=== PATIENT | female | born 1965 | race Caucasian/White ===

== ENCOUNTER 2019-04-15 23:43 | Emergency (ER) | payer OTHER ==
[~2019-04-15] VITALS: Ht 154.9 cm; Wt 81.6 kg
[2019-04-15 23:50] VITALS: BP 152/90
--- NOTE | 2019-04-15 23:53 | NUR ---
TO LOBBY A/W BED AMBULATORY
--- NOTE | 2019-04-16 00:27 | NUR ---
PT AMBULATED TO ER BED 12
[2019-04-16 01:00] LABS: BASOPHILS # (AUTO) 0.1 K/uL (0.00-0.22); BASOPHILS % (AUTO) 0.7 % (0.0-2.0); EOSINOPHILS % (AUTO) 0.5 % (0.0-4.0); HEMATOCRIT 42.1 % (36-48); HEMOGLOBIN 14.3 g/dL (12.0-16.0); LYMPHOCYTES # (AUTO) 1.6 K/uL (2.5-16.5); LYMPHOCYTES % (AUTO) 19.1 % (20.5-51.1); MEAN CORPUSCULAR HEMOGLOBIN 30 pg (27-31); MEAN CORPUSCULAR HGB CONC 34 g/dL (33-37); MONOCYTES # (AUTO) 0.4 K/uL (0.8-1.0); MONOCYTES % (AUTO) 4.5 % (1.7-9.3); NEUTROPHILS # (AUTO) 6.4 K/uL (1.8-7.7); NEUTROPHILS % (AUTO) 75.2 % (42.2-75.2); PLATELET COUNT (AUTO) 311 K/uL (140-450); RED BLOOD CELL COUNT(AUTO) 4.84 MIL/uL (4.20-5.40); RED CELL DISTRIBUTION WIDTH 12.9 % (11.6-13.7); WHITE BLOOD COUNT (AUTO) 8.5 K/uL (4.8-10.8)
--- NOTE | 2019-04-16 01:00 | NUR ---
54 YO F BIB SELF C/O RLQ 3/10 SHARP PAIN STARTING TODAY WITH VOMITING SINCE 1 PM X 3. ALSO CO 4/10 ROA SINCE 1300, GENERALIZED BODY ACHES. DENIES FEVER/CHILLS, COUGH, DIARRHEA. ABD IS ROUND, SOFT/PLIABLE, NON TENDER. MEDICATED AT HOME WITH IBUPROFEN @ 1500 WITH LITTLE RELIEF. PMH-- DENIES
[2019-04-16] MEDS: NACL 0.9% 1,000 ML IV ONE (01:10)
[2019-04-16] MEDS: ONDANSETRON 4 MG/2 ML VIAL IVP ONE (01:11)
[2019-04-16] MEDS: KETOROLAC 30 MG/ML VIAL IVP ONE (01:11)
[2019-04-16 01:15] LABS: ALBUMIN 3.7 g/dL (3.4-5.0); ANION GAP 12.4 (8-16); CARBON DIOXIDE 29.1 mmol/L (21-32); CREATININE 0.6 mg/dL (0.6-1.3); POTASSIUM 3.5 mmol/L (3.5-5.1); TOTAL BILIRUBIN 0.4 mg/dL (0.0-1.0)
[2019-04-16 04:30] VITALS: BP 142/82
--- NOTE | 2019-04-16 04:32 | NUR ---
Patient discharged with v/s stable. Written and verbal after care instructions given and explained. Patient alert, oriented and verbalized understanding of instructions. Ambulatory with steady gait. All questions addressed prior to discharge. ID band removed. Patient advised to follow up with PMD. Rx of ZOFRAN, MOTRIN, TRAMADOL given. Patient educated on indication of medication including possible reaction and side effects. Opportunity to ask questions provided and answered.
== END 2019-04-16 04:30 | disposition home or self-care (01) ==
LOC: MED 23:43
DX: R10.11 Right upper quadrant pain (principal); R11.10 Vomiting, unspecified
CPT/HCPCS: 36415; 74176; 80053; 85025; 96361; 96374; 96375; 99284; J1885; J2405; J7030

== ENCOUNTER 2019-09-25 12:29 | Emergency (ER) | payer OTHER ==
[~2019-09-25] VITALS: Ht 157.5 cm; Wt 85.4 kg
[2019-09-25 12:35] VITALS: BP 146/81
--- NOTE | 2019-09-25 12:43 | NUR ---
AMBULATED TO BED 10
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
[2019-09-25] MEDS: IBUPROFEN 600 MG TAB PO ONE (13:11)
--- NOTE | 2019-09-25 13:11 | NUR ---
XRAY IS AT BEDSIDE.
--- NOTE | 2019-09-25 13:56 | NUR ---
PT TO ROOM 12
--- NOTE | 2019-09-25 14:02 | NUR ---
PA MAYEN RE-EVALUATING PT
[2019-09-25 14:25] VITALS: BP 146/81
--- NOTE | 2019-09-25 14:26 | NUR ---
Patient discharged with v/s stable. Written and verbal after care instructions given and explained. Patient alert, oriented and verbalized understanding of instructions. Ambulatory with steady gait. All questions addressed prior to discharge. ID band removed. Patient advised to follow up with PMD. Rx of MOTRIN 600MG given. Patient educated on indication of medication including possible reaction and side effects. Opportunity to ask questions provided and answered.
== END 2019-09-25 14:26 | disposition home or self-care (01) ==
LOC: MED 12:29
DX: S60.221A Contusion of right hand, initial encounter (principal); R03.0 Elevated blood-pressure reading, without diagnosis of hypertension; V89.2XXA Person injured in unspecified motor-vehicle accident, traffic, initial encounter; Y93.89 Activity, other specified; Y92.89 Other specified places as the place of occurrence of the external cause; Y99.8 Other external cause status
CPT/HCPCS: 73110; 73130; 99284; Q0092

== ENCOUNTER 2019-12-14 17:36 | Emergency (ER) | payer OTHER ==
[~2019-12-14] VITALS: Ht 154.9 cm; Wt 85.7 kg
[2019-12-14 17:43] VITALS: BP 117/87
--- NOTE | 2019-12-14 17:50 | NUR ---
PT AMBULATED TO BED 8, STEADY GAIT.
--- NOTE | 2019-12-14 17:57 | NUR ---
VIKTOR MAYEN AT BEDSIDE EVALUATING PT.
--- NOTE | 2019-12-14 18:03 | NUR ---
PATIENT PRESENTS TO ED WITH RASH ON BILAT LOWER EXTREMITIES, RIGHT RING FINGER AND RIGHT UPPER EXTREMITIES. RASH ON FINGER HAS PUSTULES, LOWER EXTREMITY RASHES ARE BLANCHABLE . PT STATES RASHES ARE ITCHY, BUT NOT PAINFUL. . DENIES N/V/D; SKIN IS PINK/WARM/DRY; AAOX4 WITH EVEN AND STEADY GAIT; LUNGS CLEAR BL; HR EVEN AND REGULAR; PT DENIES ANY FEVER, CP, SOB, OR COUGH AT THIS TIME; PATIENT STATES PAIN OF 0/10 AT THIS TIME; VSS; PATIENT POSITIONED FOR COMFORT; HOB ELEVATED; BEDRAILS UP X2; BED DOWN. ER MD MADE AWARE OF PT STATUS.
[2019-12-14] MEDS ORDERED: diphenhydrAMINE 50 MG CAP PO ONE (18:05)
[2019-12-14] MEDS ORDERED: predniSONE 20 MG TAB PO ONE (18:05)
[2019-12-14] MEDS ORDERED: FAMOTIDINE 20 MG TAB PO ONE (18:05)
[2019-12-14 18:45] VITALS: BP 117/87
--- NOTE | 2019-12-14 18:45 | NUR ---
Patient discharged with v/s stable. Written and verbal after care instructions given and explained. Patient alert, oriented and verbalized understanding of instructions. Ambulatory with steady gait. All questions addressed prior to discharge. ID band removed. Patient advised to follow up with PMD. Rx of COTRIZONE, PREDNISONE, BENADRYL given. Patient educated on indication of medication including possible reaction and side effects. Opportunity to ask questions provided and answered.
== END 2019-12-14 18:45 | disposition home or self-care (01) ==
LOC: MED 17:36
DX: R21 Rash and other nonspecific skin eruption (principal)
CPT/HCPCS: 99284; J7512; Q0163

== ENCOUNTER 2020-04-16 19:34 | Emergency (ER) | payer OTHER ==
[~2020-04-16] VITALS: Ht 154.9 cm; Wt 81.6 kg
[2020-04-16 19:39] VITALS: BP 150/90
--- NOTE | 2020-04-16 19:39 | NUR ---
TO LOBBY A/W BED AMBULATORY
--- NOTE | 2020-04-16 22:22 | NUR ---
PT AMBULATED TO BED #7
--- NOTE | 2020-04-16 23:00 | NUR ---
55 Y/O FEMALE PRESENTED TO THE ED FROM HOME C/O 10/13 ACHING PAIN IN HER LEFT TOOTH THAT RADIATES TO THE LEFT SIDE OF HER FACE, LEFT EAR AND LEFT SIDE OF HER THROATX2 DAYS. PT STATES THAT SHE HAS A DENTIST APPT ON THURSDAY 04/20. PT ADMITS TO TAKING IBUPROFEN AND PENICILLIN WITH MILD RELIEF. PT DENIES FEVER/SOB/DIARRHEA. NO FACIAL SWELLING NOTE, NO OBSTRUCTION OF AIRWAY NOTED. MILD BLEEDING CONTROLLED. NO PUS NOTED AT THE SITE OF THE LEFT UPPER TOOTH. NO ACUTE DISTRESS NOTED. PMH: GIOVANNI DIAZ
--- NOTE | 2020-04-16 23:15 | NUR ---
PT CONNECTED TO THE ELECTRIC MOTOR CONTROL ASSEMBLER. BED IS LOCKED AND IN LOWEST POSITION. SIDE RAILSX1. PT IS NOT IN ANY ACUTE DISTRESS AT THIS TIME. CALL LIGHT WITHIN REACH.
--- NOTE | 2020-04-16 23:20 | NUR ---
Dr. Boggs examining patient.
[2020-04-16] MEDS ORDERED: CLINDAMYCIN 600 MG/4 ML VIAL IM ONE (23:50)
[2020-04-16] MEDS ORDERED: KETOROLAC 60 MG/2 ML VIAL IM ONE (23:50)
[2020-04-17] MEDS ORDERED: ACETAMINOPHEN EXTRA STRENGTH 500 MG TAB PO ONE ×2 (00:20→00:25)
--- NOTE | 2020-04-17 00:20 | NUR ---
PT POSITIONED IN SEMI-FOWLERS POSITION & CONNECTED TO THE PLATING AND POINT ASSEMBLY SUPERVISOR. BED IS LOCKED AND IN LOWEST POSITION. SIDE RAILSX1. PT IS NOT IN ANY ACUTE DISTRESS AT THIS TIME. CALL LIGHT WITHIN REACH.
--- NOTE | 2020-04-17 00:30 | NUR ---
PO CHALLENGE COMPLETED, PT TOLERATED WELL. ERMD NOTIFIED.
[2020-04-17 01:22] VITALS: BP 134/90
--- NOTE | 2020-04-17 01:29 | NUR ---
Patient discharged with v/s stable. Written and verbal after care instructions given and explained. Patient alert, oriented and verbalized understanding of instructions. Ambulatory with steady gait. All questions addressed prior to discharge. ID band removed. Patient advised to follow up with PMD. Rx of MOTRIN, AUGMENTIN,NORCO given. Patient educated on indication of medication including possible reaction and side effects. Opportunity to ask questions provided and answered.
== END 2020-04-17 01:29 | disposition home or self-care (01) ==
LOC: MED 19:34
DX: K05.00 Acute gingivitis, plaque induced (principal); E11.9 Type 2 diabetes mellitus without complications
CPT/HCPCS: 96372; 99285; J1885; J3490

== ENCOUNTER 2020-08-07 16:49 | Emergency (ER) | payer OTHER ==
[~2020-08-07] VITALS: Ht 157.5 cm; Wt 85.7 kg
[2020-08-07 16:53] VITALS: BP 120/83
[2020-08-07] MEDS ORDERED: ACET-8386 PO (17:13)
[2020-08-07] MEDS ORDERED: KETOROLAC 30 MG/ML VIAL IM ONE (17:15)
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
[2020-08-07 17:42] VITALS: BP 120/83
--- NOTE | 2020-08-07 17:42 | NUR ---
Patient discharged with v/s stable. Written and verbal after care instructions given and explained. Patient alert, oriented and verbalized understanding of instructions. Ambulatory with steady gait. All questions addressed prior to discharge. ID band removed. Patient advised to follow up with PMD. Rx of HYDROCODONE/ACETAMINOPHEN given. Patient educated on indication of medication including possible reaction and side effects. Opportunity to ask questions provided and answered.
== END 2020-08-07 17:42 | disposition home or self-care (01) ==
LOC: MED 16:49
DX: K08.89 Other specified disorders of teeth and supporting structures (principal); E11.9 Type 2 diabetes mellitus without complications; Z79.899 Other long term (current) drug therapy
CPT/HCPCS: 96372; 99283; J1885

== ENCOUNTER 2020-10-13 10:28 | Emergency (ER) | payer OTHER ==
[~2020-10-13] VITALS: Ht 180.3 cm; Wt 47.2 kg
[~2020-10-13 10:28] MED LIST: ACET-8386 PO
[2020-10-13 10:44] VITALS: BP 124/84
--- NOTE | 2020-10-13 11:00 | NUR ---
PT ASKED TO GIVE URINE SAMPLE. ABLE TO AMBULATE SAFELY TO RESTROOM. SAMPLE RETRIEVED AND TESTED
--- NOTE | 2020-10-13 11:07 | NUR ---
55 Y/O FEMALE BIB SELF FOR C/O N/V/D OF 10/12/20 AT NIGHT. NO BLOOD NOTED IN EMESIS OR DIARRHEA PER PT. ABLE TO PASS FLATUS. PT CLAIMS IT MAY BE FOOD POISONING. ALL OTHER SYSTEMS WNL. ERMD MADE AWARE. PMHX: HTN, DM 2 NKDA
--- NOTE | 2020-10-13 11:18 | NUR ---
DR. LLANOS BEDSIDE EVALUATING PT
[2020-10-13] MEDS ORDERED: NACL 0.9% 1,000 ML IV ONE (11:25)
[2020-10-13] MEDS ORDERED: DIPHENOXYLATE /ATROPINE 2.5 MG TAB PO ONE (11:25)
[2020-10-13] MEDS ORDERED: NACL 0.9% 1,000 ML IV SCH (11:25)
[2020-10-13] MEDS ORDERED: ONDANSETRON 4 MG/2 ML VIAL IVP ONE (11:25)
--- NOTE | 2020-10-13 11:40 | NUR ---
IV ACCESS ESTABLISHED [facility] IVF AND MEDS. INSERTION SUCCESSFUL.
[2020-10-13 12:07] LABS: BASOPHILS % (AUTO) 0.6 % (0.0-2.0); EOSINOPHILS # (AUTO) 0.1 K/uL (0-0.4); EOSINOPHILS % (AUTO) 0.9 % (0.0-4.0); HEMATOCRIT 42.4 % (36-48); HEMOGLOBIN 14.6 g/dL (12.0-16.0); LYMPHOCYTES # (AUTO) 0.8 K/uL (2.5-16.5); MEAN CORPUSCULAR HEMOGLOBIN 30 pg (27-31); MEAN CORPUSCULAR HGB CONC 34 g/dL (33-37); MEAN CORPUSCULAR VOLUME 87.6 fL (80-94); MONOCYTES # (AUTO) 0.4 K/uL (0.8-1.0); MONOCYTES % (AUTO) 5.5 % (1.7-9.3); NEUTROPHILS # (AUTO) 6.1 K/uL (1.8-7.7); PLATELET COUNT (AUTO) 265 K/uL (140-450); RED BLOOD CELL COUNT(AUTO) 4.85 MIL/uL (4.20-5.40); RED CELL DISTRIBUTION WIDTH 13.4 % (11.6-13.7); WHITE BLOOD COUNT (AUTO) 7.4 K/uL (4.8-10.8)
--- NOTE | 2020-10-13 12:23 | NUR ---
PT HAS BEEN PROVIDED WITH WARM BLANKET. PT CURRENTLY RESTING ON SIDE WITH EYES OPEN. BED IN LOWEST POSITION WITH SIDERAIL X1 UP. WILL CONTINUE TO MONITOR
[2020-10-13 13:01] LABS: ALBUMIN 3.6 g/dL (3.4-5.0); ANION GAP 17.9 (8-16); CARBON DIOXIDE 22.6 mmol/L (21-32); CREATININE 0.7 mg/dL (0.6-1.3); POTASSIUM 3.5 mmol/L (3.5-5.1); TOTAL BILIRUBIN 0.6 mg/dL (0.0-1.0)
[2020-10-13] MEDS ORDERED: ATRO1TAB PO (13:15)
[2020-10-13] MEDS ORDERED: ONDA-24 PO (13:15)
[2020-10-13 13:28] VITALS: BP 115/80
--- NOTE | 2020-10-13 13:34 | NUR ---
Patient discharged with v/s stable. Written and verbal after care instructions given and explained. Patient alert, oriented and verbalized understanding of instructions. Ambulatory with steady gait. All questions addressed prior to discharge. ID band removed. Patient advised to follow up with PMD. Rx of ZOFRAN/LOMOTIL given. Patient educated on indication of medication including possible reaction and side effects. Opportunity to ask questions provided and answered. IV DISCONTINUED, WNL
--- NOTE | 2020-10-14 20:25 | NUR ---
LATE ENTRY- 0.9% NS IVF DISCONTINUED AT 1300
== END 2020-10-13 13:34 | disposition home or self-care (01) ==
LOC: MED 10:28
DX: R11.2 Nausea with vomiting, unspecified (principal); R19.7 Diarrhea, unspecified; E11.9 Type 2 diabetes mellitus without complications; I10 Essential (primary) hypertension; Z90.49 Acquired absence of other specified parts of digestive tract; Z98.890 Other specified postprocedural states; Z79.899 Other long term (current) drug therapy
CPT/HCPCS: 36415; 80053; 81002; 81025; 85025; 96361; 96374; 99283; J2405; J7030

== ENCOUNTER 2020-12-21 21:02 | Emergency (ER) | payer OTHER ==
[~2020-12-21] VITALS: Ht 154.9 cm; Wt 84.4 kg
[~2020-12-21 21:02] MED LIST changes: +ATRO1TAB PO; +ONDA-24 PO
[2020-12-21 21:13] VITALS: BP 136/86
--- NOTE | 2020-12-21 21:17 | NUR ---
PT SENT TO LOBBY
[2020-12-21] MEDS ORDERED: ONDANSETRON 4 MG ODT PO ONE (23:20)
[2020-12-21 23:34] LABS: APPEARANCE,URINE CLEAR (CLEAR); BILIRUBIN,URINE NEGATIVE (NEGATIVE); BLOOD, URINE NEGATIVE (NEGATIVE); COLOR,URINE YELLOW (YELLOW); LEUKOCYTE ESTERASE ,URINE NEGATIVE (NEGATIVE); NITRITE, URINE NEGATIVE (NEGATIVE); UGLUCOSE NEGATIVE (NEGATIVE)
--- NOTE | 2020-12-21 23:51 | NUR ---
PT AMBULATED TO BED 12.
--- NOTE | 2020-12-22 | NUR ---
55/F BIB WITH C/O HEADACHE AND VOMITING SINCE 2PM. PATIENT STATES SHE HAD A BOWL OF SOUP AROUND 1PM AND STATES SHES HAD 4-5 EPISODES OF VOMITING SINCE. REPORTS TAKING TYLENOL WITH NO RELIEF OF HEADACHE. DENIES CP, SOB, FEVER OR CHILLS. MEDHX: DM ALLERGIES: DENIES
[2020-12-22] MEDS ORDERED: ONDA-24 SL (02:07)
== END 2020-12-22 02:27 | disposition home or self-care (01) ==
LOC: MED 21:02
DX: R11.2 Nausea with vomiting, unspecified (principal); E11.9 Type 2 diabetes mellitus without complications; I10 Essential (primary) hypertension; G43.909 Migraine, unspecified, not intractable, without status migrainosus; Z90.49 Acquired absence of other specified parts of digestive tract; Z79.899 Other long term (current) drug therapy
CPT/HCPCS: 74022; 81003; 81025; 99284; Q0162

== ENCOUNTER 2022-06-09 17:20 | Emergency (ER) | payer OTHER ==
[~2022-06-09] VITALS: Ht 154.9 cm; Wt 79.8 kg
[~2022-06-09 17:20] MED LIST changes: -ACET-8386 PO; +ACET-8905 PO; +ONDA-188 PO; +ONDA-188 SL; -ONDA-24 PO
[2022-06-09 17:26] VITALS: BP 123/90
[2022-06-09 18:02] LABS: BASOPHILS # (AUTO) 0.1 K/uL (0.00-0.22); BASOPHILS % (AUTO) 0.6 % (0.0-2.0); EOSINOPHILS # (AUTO) 0.2 K/uL (0-0.4); EOSINOPHILS % (AUTO) 2.5 % (0.0-4.0); HEMATOCRIT 43.3 % (36-48); HEMOGLOBIN 14.7 g/dL (12.0-16.0); LYMPHOCYTES # (AUTO) 2.9 K/uL (2.5-16.5); LYMPHOCYTES % (AUTO) 29.5 % (20.5-51.1); MEAN CORPUSCULAR HEMOGLOBIN 29 pg (27-31); MEAN CORPUSCULAR HGB CONC 34 g/dL (33-37); MEAN CORPUSCULAR VOLUME 85.9 fL (80-94); MONOCYTES # (AUTO) 0.7 K/uL (0.8-1.0); MONOCYTES % (AUTO) 7.1 % (1.7-9.3); NEUTROPHILS % (AUTO) 60.3 % (42.2-75.2); PLATELET COUNT (AUTO) 348 K/uL (140-450); RED BLOOD CELL COUNT(AUTO) 5.04 MIL/uL (4.20-5.40); RED CELL DISTRIBUTION WIDTH 14.1 % (11.6-13.7)
[2022-06-09 18:16] LABS: ALBUMIN 4.2 g/dL (3.4-5.0); ANION GAP 16.5 (8-16); CARBON DIOXIDE 27.4 mmol/L (21-32); CREATININE 0.8 mg/dL (0.6-1.3); POTASSIUM 3.9 mmol/L (3.5-5.1); TOTAL BILIRUBIN 0.5 mg/dL (0.0-1.0)
--- NOTE | 2022-06-09 23:50 | NUR ---
PT TAKEN TO BED 6
[2022-06-10] MEDS ORDERED: ONDANSETRON 4 MG/2 ML VIAL IVP ONE (00:10)
[2022-06-10] MEDS ORDERED: NACL 0.9% 2,000 ML IV ONE (00:10)
[2022-06-10] MEDS ORDERED: DICYCLOMINE 20 MG/2 ML VIAL IM ONE (00:10)
--- NOTE | 2022-06-10 00:53 | NUR ---
57YR OLD FEMALE BIB SELF C/O ABD PAIN V/D X3DAYS. PT IS A&OX4 . PT STATES VOMITING AND DIARRHEA X3DAYS. DENIES CP OR SOB. HOB ELEVATED RESP EVEN AND UNLABORED. DENIES ANY URINATION DIFFCULITLY. BED AT LOWEST POSITION AND SIDE RAIL UP X2 ' NKDA DM
[2022-06-10] MEDS ORDERED: BEN10 PO (02:09)
[2022-06-10] MEDS ORDERED: ONDA-188 PO (02:09)
[2022-06-10 03:37] VITALS: BP 105/53
--- NOTE | 2022-06-10 03:37 | NUR ---
Patient discharged with v/s stable. Written and verbal after care instructions given and explained. Patient verbalized understanding. Ambulatory with steady gait. All questions addressed prior to discharge. Advised to follow up with PMD.
--- NOTE | 2022-06-10 04:00 | NUR ---
The patient's care was reviewed and supervised by Elisabeth Pemberton RN.
== END 2022-06-10 03:37 | disposition home or self-care (01) ==
LOC: MED 17:20
DX: R11.10 Vomiting, unspecified (principal); R19.7 Diarrhea, unspecified; E11.9 Type 2 diabetes mellitus without complications; I10 Essential (primary) hypertension; Z90.49 Acquired absence of other specified parts of digestive tract; Z79.899 Other long term (current) drug therapy; Z79.891 Long term (current) use of opiate analgesic
CPT/HCPCS: 36415; 80053; 83690; 85025; 96361; 96372; 96374; 99284; J0500; J2405; J7030

== ENCOUNTER 2023-07-01 09:36 | Emergency (ER) | payer OTHER ==
[~2023-07-01] VITALS: Ht 154.9 cm; Wt 81.6 kg
[~2023-07-01 09:36] MED LIST changes: +BEN10 PO
[2023-07-01 09:39] VITALS: PULSE 87; RESP 18; TEMP 97.1; O2SAT 96
[2023-07-01] MEDS: HYDROcodone/APAP 5/325 MG 1 TAB TAB PO ONE (10:18)
[2023-07-01] MEDS: KETOROLAC 30 MG/ML VIAL IM ONE (11:28)
[2023-07-01] MEDS ORDERED: NAPR-337 PO (12:09)
[2023-07-01 12:17] VITALS: BP 138/68; PULSE 88; RESP 16; TEMP 98.3; O2SAT 99
== END 2023-07-01 12:17 | disposition home or self-care (01) ==
LOC: MED 09:36
DX: S42.212A Unspecified displaced fracture of surgical neck of left humerus, initial encounter for closed fracture (principal); S50.312A Abrasion of left elbow, initial encounter; M25.532 Pain in left wrist; E11.9 Type 2 diabetes mellitus without complications; I10 Essential (primary) hypertension; Z79.899 Other long term (current) drug therapy; W01.0XXA Fall on same level from slipping, tripping and stumbling without subsequent striking against object, initial encounter; Y92.89 Other specified places as the place of occurrence of the external cause; Y93.89 Activity, other specified; Y99.8 Other external cause status
CPT/HCPCS: 73030; 73080; 73090; 73110; 96372; 99284; J1885